=== PATIENT | male | born 1950 | race Caucasian/White ===

== ENCOUNTER 2023-04-20 15:07 | Outpatient (CLI) | payer MEDICARE, BC, OTHER | END 2023-04-20 15:08 | disposition home or self-care (01) | LOC: CSHRAD 15:07 | PROVIDERS: ATTEND Internal Medicine | DX: R50.9 Fever, unspecified (principal); R06.02 Shortness of breath; R05.1 Acute cough; R91.8 Other nonspecific abnormal finding of lung field | CPT/HCPCS: 71046 ==

== ENCOUNTER 2023-05-06 15:33 | Outpatient (CLI) | payer MEDICARE, BC, OTHER | END 2023-05-06 15:34 | disposition home or self-care (01) | LOC: CSHCT 15:33 | PROVIDERS: ATTEND Internal Medicine | DX: R50.9 Fever, unspecified (principal); R93.89 Abnormal findings on diagnostic imaging of other specified body structures; R91.8 Other nonspecific abnormal finding of lung field | CPT/HCPCS: 71270; 82565 ==